=== PATIENT | male | born 1960 | race Caucasian/White ===

== ENCOUNTER → 2016-07-22 | Outpatient (CLI) | payer BC ==
[~2016-07-22] MED LIST: /AMLO25TA PO; /PRAV20TA PO; ASPI1TAB PO; CHLO125TA PO; CORE25TA PO; DICY10CA2 PO; FURO20TA2 PO; GABA300C2 PO; KLOR10TA21 PO; LISI5TAB PO; LOSA100T36 PO; METF-415 PO; NORC5TAB PO; PAME25CA PO; PRIL40CA PO; ULTR50TA PO; [UNRECOGNIZED DRUG - OTHER] SC
[2016-07-22 15:58] LABS: ANION GAP 11 MEQ/L (8-16); BLOOD UREA NITROGEN 12 MG/DL (7-18); CARBON DIOXIDE LEVEL 27 MEQ/L (21-32); CHLORIDE LEVEL 105 MEQ/L (98-107); CREATININE FOR GFR 1.06 MG/DL (0.70-1.30); GLOMERULAR FILTRATION RATE > 60.0 (>56); GLUCOSE, FASTING 215 MG/DL (70-105); POTASSIUM SERUM 4.1 MEQ/L (3.5-5.1); SODIUM LEVEL 143 MEQ/L (136-145)
== END ==
LOC: M RAD 14:56
PROVIDERS: ATTEND Internal Medicine
DX: E11.9 Type 2 diabetes mellitus without complications (principal)

== ENCOUNTER → 2016-08-01 | Outpatient (CLI) | payer BC ==
--- NOTE | 2016-08-01 15:11 | REP ---
MR BRAIN WITHOUT AND WITH CONTRAST: HISTORY: Low testosterone. CONTRAST: ProHance 9 mL. COMPARISON: 06/16/2013 There are no areas of abnormal signal intensity in the brain. There is no intraparenchymal hemorrhage, infarct, mass or midline shift. The ventricular system is normal in appearance. There is no extracerebral collection. The pituitary gland is normal in size and signal intensity. The pituitary gland measures 7 mm in height. There is homogenous enhancement with contrast. The infundibulum is midline. The cavernous sinuses, optic chiasm and hypothalamus are normal in appearance. The sinuses are clear. IMPRESSION: There is no intracranial lesion. Signed by Wei Hernadez MD 08/01/2016 03:16 P
== END ==
LOC: M RAD 13:17
PROVIDERS: ATTEND Internal Medicine
DX: T38.7X6A Underdosing of androgens and anabolic congeners, initial encounter (principal); Z91.138 Patient's unintentional underdosing of medication regimen for other reason
CPT/HCPCS: 70553; A9576

== ENCOUNTER 2018-03-28 09:02 | Day surgery (SDC) | payer OTHER ==
[~2018-03-28 09:02] MED LIST changes: -/AMLO25TA PO; -/PRAV20TA PO; -ASPI1TAB PO; -CHLO125TA PO; -CORE25TA PO; -DICY10CA2 PO; -FURO20TA2 PO; -GABA300C2 PO; -KLOR10TA21 PO; -LISI5TAB PO; -LOSA100T36 PO; -METF-415 PO; -NORC5TAB PO; +NS 1,000 ML IV; -PAME25CA PO; -PRIL40CA PO; -ULTR50TA PO; -[UNRECOGNIZED DRUG - OTHER] SC
[2018-03-28] MEDS ORDERED: LIDOCAINE 2% INJ 100 MG/5 ML SDV (FOR ANES.) As Ordered (09:38)
[2018-03-28] MEDS ORDERED: PROPOFOL 200 MG/20 ML VIAL As Ordered ×2 (09:38)
== END 2018-03-28 11:10 | disposition home or self-care (01) ==
LOC: M OPP 09:02
DX: Z12.11 Encounter for screening for malignant neoplasm of colon (principal); Z86.010 Personal history of colon polyps; K64.4 Residual hemorrhoidal skin tags; K57.30 Diverticulosis of large intestine without perforation or abscess without bleeding; I10 Essential (primary) hypertension; E78.5 Hyperlipidemia, unspecified; E11.9 Type 2 diabetes mellitus without complications; K21.9 Gastro-esophageal reflux disease without esophagitis; R12 Heartburn; M19.90 Unspecified osteoarthritis, unspecified site; G47.30 Sleep apnea, unspecified; N40.1 Benign prostatic hyperplasia with lower urinary tract symptoms; Z79.84 Long term (current) use of oral hypoglycemic drugs; Z79.899 Other long term (current) drug therapy
CPT/HCPCS: G0105

== ENCOUNTER → 2018-06-06 | Outpatient (REF) | payer OTHER ==
[~2018-06-06] MED LIST changes: +/AMLO25TA PO; +/PRAV20TA PO; +ASPI1TAB PO; +CARV25TA PO; +CHLO125TA PO; +CORE25TA PO; +DICY10CA2 PO; +FURO20TA2 PO; +GABA-843 PO; +GABA300C2 PO; +KLOR10TA21 PO; +LISI5TAB PO; +LOSA100T36 PO; +LOSA100T50 PO; +METF-415 PO; +METF10004 PO; +NORC5TAB PO; -NS 1,000 ML IV; +OMEP40CA2 PO; +PAME25CA PO; +PRAV40TA2 PO; +PRIL40CA PO; +TRUL0.5I SC; +ULTR50TA PO; +[UNRECOGNIZED DRUG - OTHER] SC
[2018-06-06 19:52] LABS: APPEARANCE, URINE CLEAR (CLEAR); BACTERIA, URINE AUTO NEGATIVE (NEGATIVE); BILIRUBIN, URINE AUTO NEGATIVE (NEGATIVE); BLOOD, URINE BLOOD NEGATIVE (NEGATIVE); COLOR, URINE YELLOW (YELLOW); GLUCOSE, URINE (UA) AUTO 3+ mg/dL (NEGATIVE); KETONE, URINE AUTO NEGATIVE (NEGATIVE); LEUKOCYTE ESTERASE, URINE AUTO NEGATIVE (NEGATIVE); NITRITE, URINE AUTO NEGATIVE (NEGATIVE); PROTEIN, URINE AUTO NEGATIVE (NEGATIVE); RBC, URINE AUTO 0 /HPF (0-3); SPECIFIC GRAVITY URINE AUTO 1.032 (1.002-1.035); SQUAMOUS EPITHELIAL CELL UR AU 0 /HPF (0-6); UROBILINOGEN, URINE AUTO 0.2 mg/dL (0.0-2.0); WBC, URINE AUTO 0 /HPF (0-3)
== END ==
LOC: M SMT 17:32
PROVIDERS: ATTEND Nurse Practitioner Family
DX: R35.0 Frequency of micturition (principal)
CPT/HCPCS: 51798; 81001; 87086; G0463

== ENCOUNTER 2021-09-29 14:23 | Emergency (ER) | payer OTHER ==
[~2021-09-29] VITALS: Ht 172.7 cm; Wt 98.4 kg
[~2021-09-29 14:23] MED LIST changes: -/AMLO25TA PO; -/PRAV20TA PO; +GABA-282 PO; -GABA-843 PO; +LOSA100T45 PO; -LOSA100T50 PO; +NORV2TAB PO; -OMEP40CA2 PO; +OMEP40CA4 PO; +PRAV1TAB39 PO
[2021-09-29 14:25] VITALS: BP 133/77
== END 2021-09-29 18:26 | disposition left against medical advice (07) ==
LOC: M ED 14:23
DX: Z53.29 Procedure and treatment not carried out because of patient's decision for other reasons (principal)

== ENCOUNTER 2022-07-18 09:06 | Emergency (ER) | payer OTHER ==
[~2022-07-18] VITALS: Ht 172.7 cm; Wt 97.7 kg
[2022-07-18 09:07] VITALS: BP 167/90
[2022-07-18] MEDS ORDERED: VITA500045 PO (09:21)
[2022-07-18] MEDS ORDERED: OMEP-173 PO (09:21)
[2022-07-18] MEDS ORDERED: GLIP5TAB8 PO (09:21)
[2022-07-18] MEDS ORDERED: INVO300T PO (09:21)
[2022-07-18] MEDS ORDERED: SEMA2PEN SQ (09:21)
[2022-07-18] MEDS ORDERED: DULO1CAP4 PO (09:21)
[2022-07-18] MEDS ORDERED: ATOR1TAB21 PO (09:21)
[2022-07-18] MEDS ORDERED: FLOM0.4C39 PO (09:21)
[2022-07-18] MEDS ORDERED: KETOROLAC 30 MG/ML 1ML VIAL IV ONE (11:35)
[2022-07-18] MEDS ORDERED: diazePAM 10MG/2ML SYRINGE IV ONE ×2 (11:35→13:10)
[2022-07-18] MEDS ORDERED: methylPREDNISolone 125MG 2ML VIAL IV ONE (11:35)
[2022-07-18 12:12] LABS: BASO # 0.1 10^3/uL (0.0-0.2); BASO % 0.8 % (0.0-1.0); EOS # 0.1 10^3/uL (0.0-0.5); EOS % 2.2 % (0.0-3.0); HEMATOCRIT 50.5 % (42.0-52.0); LYMPH # 1.5 10^3/uL (1.5-5.0); LYMPH % 23.5 % (24.0-44.0); MEAN CORPUSCULAR HEMOGLOBIN 31.1 pg (27.0-33.0); MEAN CORPUSCULAR VOLUME 88.6 fl (80.0-96.0); MONO # 0.6 10^3/uL (0.0-0.8); MONO % 9.1 % (2.0-8.0); NEUTROPHILS # 4.1 10^3/uL (1.5-8.5); NEUTROPHILS % 63.9 % (36.0-66.0); PLATELET COUNT, AUTOMATED 147 10^3/uL (150-450); WHITE BLOOD COUNT 6.4 10^3/uL (4.0-10.0)
[2022-07-18 12:15] LABS: HEMOGLOBIN 17.7 g/dl (13.5-17.5)
[2022-07-18 12:37] LABS: BLOOD UREA NITROGEN 11 MG/DL (9-23); CALCIUM LEVEL 9.2 MG/DL (8.3-10.6); CARBON DIOXIDE LEVEL 27 MMOL/L (20-31); CHLORIDE LEVEL 101 MMOL/L (98-107); CK-MB VALUE MASS 1.9 NG/ML (<3.6); CREATININE FOR GFR 0.73 MG/DL (0.70-1.30); GLOMERULAR FILTRATION RATE > 60.0 (>49); GLUCOSE, FASTING 119 MG/DL (74-106); POTASSIUM SERUM 4.3 MMOL/L (3.5-5.1); SODIUM LEVEL 135 MMOL/L (136-145)
[2022-07-18 12:40] LABS: CPK CREATINE PHOSPHOKINASE 214 U/L (46-171); MB/CK RELATIVE INDEX 0.88 (< OR =4)
[2022-07-18] MEDS ORDERED: IBUP-1022 PO (14:57)
[2022-07-18] MEDS ORDERED: ANEC4CRE3 TOP (14:57)
[2022-07-18] MEDS ORDERED: METH-1165 PO (14:57)
[2022-07-18] MEDS ORDERED: MEDR4PAK PO (14:57)
[2022-07-18] MEDS ORDERED: HYDR-3713 PO (14:57)
== END 2022-07-18 15:27 | disposition home or self-care (01) ==
LOC: M ED 09:06
DX: M79.622 Pain in left upper arm (principal); M54.2 Cervicalgia; M99.71 Connective tissue and disc stenosis of intervertebral foramina of cervical region; E11.40 Type 2 diabetes mellitus with diabetic neuropathy, unspecified; E78.5 Hyperlipidemia, unspecified; I10 Essential (primary) hypertension; K58.9 Irritable bowel syndrome, unspecified; K21.9 Gastro-esophageal reflux disease without esophagitis; Z79.4 Long term (current) use of insulin; Z79.84 Long term (current) use of oral hypoglycemic drugs; Z79.899 Other long term (current) drug therapy
CPT/HCPCS: 36415; 71045; 72125; 80048; 82550; 82553; 84484; 85025; 85379; 93005; 93971; 96374; 96375; 96376; 99284; J3360

== ENCOUNTER 2024-01-05 13:02 | Inpatient (IN) | payer OTHER ==
[~2024-01-05] VITALS: Ht 172.7 cm; Wt 95.7 kg
[~2024-01-05 13:02] MED LIST changes: +ANEC4CRE3 TOP; +ATOR1TAB21 PO; +DULO1CAP4 PO; +FLOM0.4C39 PO; +GLIP5TAB17 PO; +HYDR-3713 PO; +IBUP-1022 PO; +INVO300T PO; -LOSA100T45 PO; +LOSA100T46 PO; +MEDR4PAK PO; +METH-1165 PO; +OMEP-173 PO; +SEMA2PEN SQ; +VITA500045 PO
[2024-01-05] MEDS: PROPARACAINE 0.5% OPHTH SOL 15ML OD ONE (14:20)
[2024-01-05] MEDS ORDERED: ISOVUE-370 76% 100ML VIAL As Ordered ONE (14:39)
[2024-01-05 15:08] LABS: BASO # 0.1 10^3/uL (0.0-0.2); BASO % 0.9 % (0.0-1.0); EOS # 0.1 10^3/uL (0.0-0.5); EOS % 0.8 % (0.0-3.0); HEMATOCRIT 46.5 % (42.0-52.0); HEMOGLOBIN 15.9 g/dl (13.5-17.5); LYMPH # 1.3 10^3/uL (1.5-5.0); MEAN CORPUSCULAR HEMOGLOBIN 30.3 pg (27.0-33.0); MEAN CORPUSCULAR HGB CONC 34.2 g/dl (32.0-36.5); MEAN CORPUSCULAR VOLUME 88.6 fl (80.0-96.0); MONO # 0.7 10^3/uL (0.0-0.8); MONO % 11.6 % (2.0-8.0); NEUTROPHILS # 4.2 10^3/uL (1.5-8.5); NEUTROPHILS % 65.4 % (36.0-66.0); PLATELET COUNT, AUTOMATED 147 10^3/uL (150-450); RED BLOOD COUNT 5.25 10^6/uL (4.30-6.10); WHITE BLOOD COUNT 6.4 10^3/uL (4.0-10.0)
[2024-01-05 15:29] LABS: INR 1.16; PARTIAL THROMBOPLASTIN TIME 25.8 SECONDS (24.8-34.2); PROTHROMBIN TIME 14.5 SECONDS (12.5-14.5)
[2024-01-05 15:39] LABS: CK-MB VALUE MASS 10.1 NG/ML (<3.6)
[2024-01-05 15:40] LABS: BLOOD UREA NITROGEN 16 MG/DL (9-23); CALCIUM LEVEL 8.7 MG/DL (8.3-10.6); CARBON DIOXIDE LEVEL 28 MMOL/L (20-31); CHLORIDE LEVEL 105 MMOL/L (98-107); CREATININE FOR GFR 0.82 MG/DL (0.70-1.30); GLOMERULAR FILTRATION RATE > 60.0 (>49); GLUCOSE, FASTING 112 MG/DL (74-106); POTASSIUM SERUM 4.7 MMOL/L (3.5-5.1); SODIUM LEVEL 138 MMOL/L (136-145)
[2024-01-05 15:41] LABS: CPK CREATINE PHOSPHOKINASE 298 U/L (46-171); MB/CK RELATIVE INDEX 3.38 (< OR =4)
[2024-01-05 16:03] LABS: ERYTHROCYTE SEDIMENTATION RATE 3 mm/hr (0-20)
[2024-01-05] MEDS: METOCLOPRAMIDE INJ 10MG/2ML VIAL IV ONE (16:15)
[2024-01-05] MEDS ORDERED: GLUCAGON INJ 1MG VIAL SC PRN (17:05)
[2024-01-05] MEDS ORDERED: GLUCOSE 4 GM CHEW PO PRN (17:05)
[2024-01-05] MEDS ORDERED: DEXTROSE 50% 50ML SYRINGE IV PRN (17:05)
[2024-01-05] MEDS: INSULIN LISPRO (NovoLOG) PER UNIT SC SCH ×2 (19:05→22:28)
[2024-01-05] MEDS ORDERED: DICL100G10 TOP (19:31)
[2024-01-05] MEDS ORDERED: ALFU10TA23 PO (19:31)
[2024-01-05] MEDS ORDERED: LIDO5OIN19 TOP (19:31)
[2024-01-05] MEDS ORDERED: ATOR1TAB19 PO (19:31)
[2024-01-05] MEDS ORDERED: METF500T13 PO (19:31)
[2024-01-05] MEDS ORDERED: TEST200I14 IM (19:31)
[2024-01-05] MEDS ORDERED: JARD1TAB3 PO (19:31)
[2024-01-05] MEDS ORDERED: TADA20TA29 PO (19:31)
[2024-01-05] MEDS ORDERED: ALPH600C PO (19:31)
[2024-01-05] MEDS ORDERED: DULO1CAP6 PO (19:31)
[2024-01-05] MEDS ORDERED: HOME MED LIST COMPLETE! XX SCH (19:35)
[2024-01-05 19:57] LABS: HEMOGLOBIN A1c 7.2 % (4.0-6.0)
[2024-01-05 20:12] LABS: THYROID STIMULATING HORMONE 1.552 uIU/ML (0.55-4.78); THYROXINE (T4) 5.9 UG/DL (4.5-10.9)
[2024-01-05 20:13] LABS: FREE T4 0.87 NG/DL (0.89-1.76)
[2024-01-05] MEDS ORDERED: ENTER DRUG NAME HERE (PATIENT'S OWN MED) PO SCH ×2 (21:00)
[2024-01-05] MEDS: DICLOFENAC EPOLAMINE 1.3% PATCH TOP SCH (22:30)
[2024-01-05] MEDS: LIDOCAINE 5% OINT 30GM TUBE TOP SCH (22:30)
[2024-01-05] MEDS: CARVedilol 12.5 MG TAB PO SCH (22:30)
[2024-01-05] MEDS: FIORICET TAB PO PRN (22:31)
[2024-01-06 01:38] VITALS: BP 134/81; TEMP 97.1; O2SAT 93
[2024-01-06 03:33] VITALS: BP 118/58; TEMP 97.8; O2SAT 93
[2024-01-06 07:34] VITALS: BP 150/80; TEMP 97.7; O2SAT 96
[2024-01-06 08:11] LABS: BLOOD UREA NITROGEN 19 MG/DL (9-23); CALCIUM LEVEL 9.3 MG/DL (8.3-10.6); CARBON DIOXIDE LEVEL 25 MMOL/L (20-31); CHLORIDE LEVEL 104 MMOL/L (98-107); CREATININE FOR GFR 0.81 MG/DL (0.70-1.30); GLOMERULAR FILTRATION RATE > 60.0 (>49); GLUCOSE, FASTING 131 MG/DL (74-106); MAGNESIUM LEVEL 2.1 MG/DL (1.8-2.4); POTASSIUM SERUM 4.1 MMOL/L (3.5-5.1); SODIUM LEVEL 137 MMOL/L (136-145)
[2024-01-06 08:28] VITALS: BP 124/76; TEMP 97.2; O2SAT 93
[2024-01-06] MEDS: ENOXAPARIN 40MG/0.4ML SYRINGE (J1650 PER 10MG) SC SCH (08:46)
[2024-01-06] MEDS: OMEPRAZOLE 20MG CAP PO SCH (08:47)
[2024-01-06] MEDS: DOXYCYCLINE HYCLATE 100MG TABLET PO SCH (08:47)
[2024-01-06] MEDS: DULoxetine 30MG CAPSULE (CYMBALTA) PO SCH (08:47)
[2024-01-06 08:48] VITALS: BP 124/76
[2024-01-06] MEDS: glipiZIDE (GLUCOTROL) 5 MG TAB PO SCH (08:48)
[2024-01-06] MEDS: ATORVASTATIN 10 MG TAB PO SCH (08:48)
[2024-01-06] MEDS ORDERED: ENTER DRUG NAME HERE (PATIENT'S OWN MED) PO SCH ×2 (09:00)
[2024-01-06] MEDS: SUMAtriptan SUCCINATE 25 MG TAB PO PRN (09:45)
[2024-01-06] MEDS ORDERED: SUMA25TA3 PO (10:36)
[2024-01-06] MEDS ORDERED: RISATAB3 PO (10:36)
[2024-01-06] MEDS ORDERED: DOXY100T PO (10:36)
[2024-01-06] MEDS: LACTOBACILLUS ACIDOPHILUS CAP (BACID) PO SCH (12:53)
[2024-01-12] MEDS ORDERED: ENTER DRUG NAME HERE (PATIENT'S OWN MED) SQ SCH (09:00)
== END 2024-01-06 13:15 | disposition home or self-care (01) | DRG 103 ==
LOC: M ED 13:02 → M ED INP 16:56 → M PCU 01-06 01:38
PROVIDERS: ADMIT Student in an Organized Health Care Education/Training Program; ATTEND Student in an Organized Health Care Education/Training Program
PROC: B246ZZZ Ultrasonography of Right and Left Heart (ICD-10-PCS; principal; 2024-01-05)
DX: G43.109 Migraine with aura, not intractable, without status migrainosus (principal); I10 Essential (primary) hypertension; E78.5 Hyperlipidemia, unspecified; F32.A Depression, unspecified; F41.9 Anxiety disorder, unspecified; G47.33 Obstructive sleep apnea (adult) (pediatric); M54.50 Low back pain, unspecified; G89.29 Other chronic pain; M47.816 Spondylosis without myelopathy or radiculopathy, lumbar region; K21.9 Gastro-esophageal reflux disease without esophagitis; R11.0 Nausea; H53.8 Other visual disturbances; H53.143 Visual discomfort, bilateral; Z98.1 Arthrodesis status; Z90.49 Acquired absence of other specified parts of digestive tract; Z79.84 Long term (current) use of oral hypoglycemic drugs; Z79.899 Other long term (current) drug therapy

== ENCOUNTER → 2024-09-16 | Outpatient (CLI) | payer OTHER ==
[~2024-09-16] MED LIST changes: +ALFU10TA23 PO; +ALPH600C PO; +ATOR1TAB19 PO; +DICL100G10 TOP; +DOXY100T PO; +DULO1CAP6 PO; +GABA-1172 PO; -GABA-282 PO; +JARD1TAB3 PO; +LIDO5OIN19 TOP; +METF500T13 PO; +RISATAB3 PO; +SUMA25TA3 PO; +TADA20TA29 PO; +TEST200I14 IM
== END ==
LOC: M RAD 15:25
PROVIDERS: ATTEND Nurse Practitioner
DX: I11.9 Hypertensive heart disease without heart failure (principal); E08.51 Diabetes mellitus due to underlying condition with diabetic peripheral angiopathy without gangrene; I70.201 Unspecified atherosclerosis of native arteries of extremities, right leg